=== PATIENT | male | born 1990 ===

== ENCOUNTER 2016-10-03 11:51 | Emergency (ER) | payer OTHER ==
[2016-10-03] MEDS ORDERED: Morphine 4 MG/ML VIAL ONE ×2 (12:05→12:57)
--- NOTE | 2016-10-03 12:08 | C.PDOC ---
History Of Present Illness 25 y/o male, with no significant PMHx, presents to ED for evaluation of crush injury to distal aspect of right 3rd and 4th fingers prior to arrival. Patient states that he was using krystal machine at work to bring something down, but it accidentally dropped on his right hand, injuring the right 3rd and 4th fingers. Pt reports significant pain to the injured site. No other complaints at this time. Time Seen by Provider: 10/03/16 12:05 Chief Complaint (Nursing): Finger,Hand,&Wrist History Per: Patient History/Exam Limitations: no limitations Onset/Duration Of Symptoms: Other (TREASURY ACCOUNTANT) Current Symptoms Are (Timing): Still Present Quality: "Pain" Severity: Severe Exacerbating Factor(s): Nothing Recent travel outside of the [place]: No Additional History Per: Patient Past Medical History Reviewed: Historical Data, Nursing Documentation, Vital Signs Vital Signs: Last Vital Signs Temp 98.1 F 10/03/16 17:41 Pulse 87 10/03/16 17:41 Resp 18 10/03/16 17:41 BP 149/86 10/03/16 17:41 Pulse Ox 97 10/03/16 18:47 - Medical History PMH: No Chronic Diseases Family History: States: No Known Family Hx Review Of Systems Constitutional: Negative for: Fever, Chills Musculoskeletal: Positive for: Hand Pain (right) Neurological: Negative for: Weakness, Numbness Physical Exam - Physical Exam Appears: Non-toxic, No Acute Distress Skin: Warm, Dry Head: Atraumatic, Normacephalic Extremity: Normal ROM (Able to bend at right 3rd and 4th DIP and PIP joint ), Tenderness (distal aspect of right 3rd and 4th fingers), Capillary Refill (<2 sec.), Deformity (crush deformity to right 3rd and 4th distal fingertips), Other (right 3rd finger: minimal nail seen, with robert red blood, right 4th finger: bloody stump noted half way down the nail. ) Pulses: Left Radial: Normal, Right Radial: Normal Neurological/Psych: Oriented x3, Normal Speech, Normal Motor, Normal Sensation ED Course And Treatment - Laboratory Results Result Diagrams: 10/03/16 12:45 10/03/16 12:45 O2 Sat by Pulse Oximetry: 97 (on RA) Pulse Ox Interpretation: Normal - Other Rad Right hand x-ray X-Ray: Viewed By Me, Read By Radiologist Interpretation: IMPRESSION: Oblique displaced fracture of the distal 3rd tuft. Comminuted displaced fracture of the 4th distal phalanx with intra-articular extension. Associated soft tissue lacerations and overlying bandages. Medical Decision Making Medical Decision Making: Right hand x-ray, blood work ordered and reviewed. Patient was given Morphine, Dilaudid, IV fluids, Ancef, and Tetanus vaccination. discussed with Dr Rodas; will talk again after pt has xray Dr Rodas will come to Ed to care for patient. [address] Rodas in ED for repair of pt's fingers. plan will be to d/c pt with antibiotics and analgesia. Disposition Discussed With .: Salena Rodas Doctor Will See Patient In The: Hospital Counseled Patient/Family Regarding: Diagnosis, Need For Followup, Rx Given - Disposition Referrals: Salena Rodas MD [Staff Provider] - Disposition Time: 18:49 Condition: SERIOUS Prescriptions: Cephalexin [cephalexin] 500 mg PO QID #28 cap Ibuprofen [Motrin] 600 mg PO TID #30 tab oxyCODONE/Acetaminophen [Percocet 5/325 mg Tab] 1 ea PO Q4 PRN #24 tab PRN Reason: Pain, Severe (8-10) Forms: [facility] (Ukrainian), General Discharge Instructions - Clinical Impression Clinical Impression: Crushing injury of right middle finger, Crushing injury of right ring finger - PA / CREELER / Resident Statement MD/DO has reviewed & agrees with the documentation as recorded. - Scribe Statement The provider has reviewed the documentation as recorded by the Scribe Sasha Tavarez All medical record entries made by the Scribe were at my direction and personally dictated by me. I have reviewed the chart and agree that the record accurately reflects my personal performance of the history, physical exam, medical decision making, and the department course for this patient. I have also personally directed, reviewed, and agree with the discharge instructions and disposition. Physician Patient Turnover Patient Signed Over To: Travis Gallagher Handoff Comments: Dr Rodas treating pt in ed; plan to d/c pt after with po meds. ,
[2016-10-03] MEDS ORDERED: Sodium Chloride 0.9% 1,000 ML IV ONE (12:31)
[2016-10-03] MEDS ORDERED: ceFAZolin 1 gm FROZEN Premix 1 GM/50 ML ML IVPB ONE ×2 (12:47→20:13)
[2016-10-03] MEDS ORDERED: Sodium Chloride 0.9% 1,000 ML ONE (12:47)
[2016-10-03 12:54] VITALS: RESP 18
[2016-10-03 12:55] LABS: BASO # 0.1 K/uL (0.0-0.2); BASO % 0.6 % (0.0-2.0); EOS % 0.3 % (0.0-4.0); HEMATOCRIT 49.6 % (35.0-51.0); LYMPH # 4.7 K/uL (1.0-4.3); LYMPH % 46.5 % (20.0-40.0); MEAN CELL VOLUME 85.2 fL (80.0-94.0); MEAN CORPUSCULAR HEMOGLOBIN 29.2 pg (27.0-31.0); MEAN CORPUSCULAR HGB CONC 34.3 g/dL (33.0-37.0); MEAN PLATELET VOLUME 8.9 fL (7.2-11.7); MONO # 0.7 K/uL (0.0-0.8); MONO % 6.8 % (0.0-10.0); RED CELL DISTRIBUTION WIDTH 12.5 % (11.5-14.5)
--- NOTE | 2016-10-03 12:55 | RAD ---
PROCEDURE: Right Hand Radiographs. HISTORY: crush inj 3rd and 4th fingers COMPARISON: None available. FINDINGS: Oblique displaced fracture of the distal 3rd tuft. Comminuted displaced fracture of the 4th distal phalanx with intra-articular extension. Associated soft tissue lacerations and overlying bandages. The remainder of the visualized osseous structures appear intact without acute displaced fractures identified. No dislocation. No evidence of radiopaque foreign body. IMPRESSION: Oblique displaced fracture of the distal 3rd tuft. Comminuted displaced fracture of the 4th distal phalanx with intra-articular extension. Associated soft tissue lacerations and overlying bandages.
[2016-10-03 13:01] LABS: INR 1.1
[2016-10-03 13:11] LABS: CHLORIDE 98 mmol/L (98-107); POTASSIUM 3.5 mmol/L (3.6-5.2); SODIUM 141 mmol/L (132-148)
[2016-10-03 13:14] LABS: ALB/GLOB RATIO 1.2 (1.0-2.1); ALKALINE PHOSPHATASE 67 U/L (38-126); ALT/SGPT 42 U/L (21-72); AST/SGOT 31 U/L (17-59); BILIRUBIN,TOTAL 0.7 mg/dL (0.2-1.3); BLOOD UREA NITROGEN 14 mg/dL (9-20); CARBON DIOXIDE 26 mmol/L (22-30); GFR AFRICAN-AMERICAN > 60; GLUCOSE,RANDOM 95 mg/dL (75-110); TOTAL PROTEIN 8.1 g/dL (6.3-8.3)
[2016-10-03 13:15] LABS: CALCIUM 9.3 mg/dl (8.6-10.4)
[2016-10-03] MEDS ORDERED: HYDROmorphone 1 mg/ml ISec IVP STA (13:58)
[2016-10-03] MEDS ORDERED: HYDROmorphone 1 mg/ml ISec ONE (14:03)
--- NOTE | 2016-10-03 14:45 | CP.PCM.CON ---
History of Present Illness - History of Present Illness History of Present Illness: HAND SURGERY CONSULT NOTE FOR DR. PALMA Patient is 25 yo M, right hand dominant, with no significant PMHx, who presents here today s/p crush injury to the right hand that occurred around 11:30 today. 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 While at work today, he and his coworkers were attempting to maneuver a forklift up with a special krystal. The krystal abruptly malfunctioned, resulting in the forklift dropping suddenly onto his hand. Patient states that he was able to quickly withdraw his hand from the object then noticed the injured fingers. He came to the ED for further evaluation. Upon consult, patient states that he was in significant pain. He is currently soaking his hand in a saline & betadine solution. Additionally, patient reports hyperesthesias to the injured area. Of note, patient requesting food at this time. Current plan and management was discussed. Patient agrees. No other complaints are noted at this time. PMHx: denies PSHx: denies SHx: denies smoking, ETOH and recreational drug use Allergies: NKDA Home medications: denies Review of Systems - Review of Systems All systems: reviewed and no additional remarkable complaints except (as per hpi ) Past Patient History - Past Social History Smoking Status: Never Smoked - PSYCHIATRIC Hx Substance Use: No - SURGICAL HISTORY Hx Surgeries: No - ANESTHESIA Hx Anesthesia: No Meds Allergies/Adverse Reactions: Allergies Allergy/AdvReac Type Severity Reaction Status Date / Time No Known Allergies Allergy Verified 10/03/16 12:07 - Medications Medications: Current Medications Sodium Chloride (Sodium Chloride 0.9%) 1,000 mls @ 100 mls/hr IV .Q10H ONE Stop: 10/03/16 22:30 Last Admin: 10/03/16 12:54 Dose: 100 mls/hr Physical Exam - Constitutional Appears: Well, Non-toxic, No Acute Distress - Head Exam Head Exam: ATRAUMATIC, NORMOCEPHALIC - Eye Exam Eye Exam: EOMI, Normal appearance - ENT Exam ENT Exam: Mucous Membranes Moist - Respiratory Exam Respiratory Exam: NORMAL BREATHING PATTERN. absent: Respiratory Distress - Cardiovascular Exam Cardiovascular Exam: +S1, +S2 - Extremities Exam Extremities exam: Positive for: full ROM Additional comments: Right hand: (+) Gross crush deformities noted to the distal tips of the ring and middle fingers. Alfredo blood noted from injury site. Portions of the distal nail plates are missing. Nail roots remain intact. Nail bed . Sensation intact. Patient able to flex and extend both PIP and DIP joints of each finger. - Neurological Exam Neurological exam: Alert, Oriented x3 - Psychiatric Exam Psychiatric exam: Normal Affect, Normal Mood - Skin Skin Exam: Dry, Normal Color Results - Vital Signs Recent Vital Signs: Last Vital Signs Temp 98.8 F 10/03/16 14:14 Pulse 80 10/03/16 14:14 Resp 18 10/03/16 14:14 BP 146/92 H 10/03/16 14:14 Pulse Ox 97 10/03/16 14:14 - Labs Result Diagrams: 10/03/16 12:45 10/03/16 12:45 Labs: Laboratory Results - last 24 hr 10/03/16 10/03/16 10/03/16 12:45 12:45 12:45 WBC 10.0 RBC 5.82 Hgb 17.0 Hct 49.6 MCV 85.2 MCH 29.2 MCHC 34.3 RDW 12.5 Plt Count 261 MPV 8.9 Neut % (Auto) 45.8 L Lymph % (Auto) 46.5 H [place] % (Auto) 6.8 Eos % (Auto) 0.3 Baso % (Auto) 0.6 Neut # 4.6 Lymph # 4.7 H [place] # 0.7 Eos # 0.0 Baso # 0.1 PT 12.3 H INR 1.1 APTT 37 H Sodium 141 Potassium 3.5 L Chloride 98 Carbon Dioxide 26 Anion Gap 21 H BUN 14 Creatinine 0.8 Est GFR ( Amer) > 60 Est GFR (Non-Af Amer) > 60 Random Glucose 95 Calcium 9.3 Total Bilirubin 0.7 AST 31 ALT 42 Alkaline Phosphatase 67 Total Protein 8.1 Albumin 4.5 Globulin 3.7 Albumin/Globulin Ratio 1.2 Blood Type Antibody Screen 10/03/16 12:45 WBC RBC Hgb Hct MCV MCH MCHC RDW Plt Count MPV Neut % (Auto) Lymph % (Auto) [place] % (Auto) Eos % (Auto) Baso % (Auto) Neut # Lymph # [place] # Eos # Baso # PT INR APTT Sodium Potassium Chloride Carbon Dioxide Anion Gap BUN Creatinine Est GFR ( Amer) Est GFR (Non-Af Amer) Random Glucose Calcium Total Bilirubin AST ALT Alkaline Phosphatase Total Protein Albumin Globulin Albumin/Globulin Ratio Blood Type B POSITIVE Antibody Screen Negative Assessment & Plan - Assessment and Plan (Free Text) Assessment: Patient is a 25 yo M, right-hand dominant, who is s/p crush injury to the right hand. - XR shows oblique displaced fracture of the distal tuft of the middle finger and a displaced comminuted fracture of the distal phalanx of the ring finger - On exam, patient has gross soft tissue avulsions of distal tips of the ring and middle fingers - Dr. Palma consulted, will evaluate patient at bedside and perform distal completion amputation - D/w patient at length in regards to the option of performing the procedure at bedside -vs- OR. Patient prefers to do the procedure at bedside. Discussed plan with Dr. Palma. Edda Desouza, PGY-3.
[2016-10-03] MEDS ORDERED: Lidocaine 1% Inj (20ml) INFIL ONE ×2 (17:17→19:31)
[2016-10-03] MEDS ORDERED: Bupivacaine HCl 0.5% PF (30 ml) Inj EPI ONE (17:18)
[2016-10-03] MEDS ORDERED: Lidocaine 1% Inj (20ml) ONE ×2 (17:45→19:34)
[2016-10-03] MEDS ORDERED: Bupivacaine HCl 0.5% PF (30 ml) Inj ONE (17:48)
[2016-10-03] MEDS ORDERED: Bacitracin 500 Units/gm Oint Foilpak UD ONE ×2 (20:08→20:11)
[2016-10-03 20:37] VITALS: BP 152/90; PULSE 94; TEMP 99.2; O2SAT 99
--- NOTE | 2016-10-08 15:58 | CON ---
DATE: 10/03/2016 HISTORY OF PRESENT ILLNESS: The patient is a 25-year-old gentleman who sustained crush amputation of his right ring and long fingers while at work. He came to the emergency room and was found to have open amputation with some exposed distal phalanx. He does not have the parts with him. PAST MEDICAL HISTORY: Is otherwise healthy. PAST SURGICAL HISTORY: None. ALLERGIES: NONE. MEDICATIONS: None. PHYSICAL EXAMINATION GENERAL: Well-developed and well nourished male, in no acute distress. EXTREMITIES: On the right hand long finger, there is partial avulsion of the distal tip involving the distal half of the nail bed, the nail, the distal phalanx, and the volar skin in a guillotine amputation type injury same for the ring finger. Proximal 1/3 of the nail is still intact. There is no active bleeding. PROCEDURE: Rongeur was obtained from the operating room after wrist block and superimposed digital blocks were performed for the hand. The patient's hand was prepped and draped in the usual sterile fashion using a rongeur. The bone was trimmed back below the skin level in order to allow the skin edges to be approximated in a vertical line. The wounds were then irrigated, any neurovascular bundle was identified and trimmed back. The skin was then approximated using 4-0 chromic in an interrupted fashion loosely. The wounds were dressed with bacitracin and Xeroform 4x4 gauze and secured in place with a large wrap and STEPHANIE wrap. The patient will followup. ASSESSMENT AND PLAN: A 25-year-old male with completion amputation of his right long and ring fingers done in the ER. He will be sent home with oral antibiotics and Percocet and follow up in my office in two days. The patient has information and direction from my office. Salena Rodas MD
== END 2016-10-03 21:00 | disposition home or self-care (01) ==
LOC: C.ER 11:51
DX: S62.632B Displaced fracture of distal phalanx of right middle finger, initial encounter for open fracture (principal); S62.634B Displaced fracture of distal phalanx of right ring finger, initial encounter for open fracture; W31.89XA Contact with other specified machinery, initial encounter; Y92.89 Other specified places as the place of occurrence of the external cause; Y99.0 Civilian activity done for income or pay
CPT/HCPCS: 26236; 73130; 80053; 85025; 85610; 85730; 86850; 86900; 90471; 90715; 96365; 96366; 96375; 96376; 99285; J0690; J1170; J2270; J7040